=== PATIENT | female | born 1990 ===

== ENCOUNTER 2022-08-19 14:32 | Outpatient (CLI) | payer OTHER | END 2022-08-19 15:59 | disposition home or self-care (01) | LOC: PRENATAL 14:32 | PROVIDERS: ATTEND Obstetrics & Gynecology Maternal & Fetal Medicine | DX: O35.9XX0 Maternal care for (suspected) fetal abnormality and damage, unspecified, not applicable or unspecified (principal); Z3A.32 32 weeks gestation of pregnancy ==